=== PATIENT | female | born 1955 | race Caucasian/White ===

== ENCOUNTER 2017-03-01 22:07 | Emergency (ER) | payer SELFPAY | END 2017-03-01 22:55 | disposition home or self-care (01) | LOC: ER 22:07 | DX: M54.6 Pain in thoracic spine (principal); Z87.891 Personal history of nicotine dependence; Z98.890 Other specified postprocedural states; Z88.8 Allergy status to other drugs, medicaments and biological substances; V49.9XXA Car occupant (driver) (passenger) injured in unspecified traffic accident, initial encounter | CPT/HCPCS: 72072; 96372; 99284; A9270-GY; J2360 ==